=== PATIENT | male | born 1975 | race Caucasian/White ===

== ENCOUNTER 2016-12-22 10:27 | Day surgery (SDC) | payer OTHER ==
[~2016-12-22] VITALS: Ht 180.3 cm; Wt 113.4 kg
[~2016-12-22 10:27] MED LIST: FISH1000 PO; GARL10CA2 PO; NEXI40CA PO; SERT-138 PO; VITA100067 PO; VITA100072 PO; vitamin B PO
[2016-12-22] MEDS ORDERED: LR 1,000 ML IV ONE (10:45)
[2016-12-22] MEDS ORDERED: dexameTHASONE 4 MG/ML 1ML VIAL (J1100) As Ordered ONE (11:06)
[2016-12-22] MEDS ORDERED: ROCURONIUM BROMIDE 50 MG/5 ML VIAL/SYRINGE As Ordered ONE (11:06)
[2016-12-22] MEDS ORDERED: LIDOCAINE 2% INJ 100 MG/5 ML SDV (FOR ANES.) As Ordered ONE (11:06)
[2016-12-22] MEDS ORDERED: ONDANSETRON 4MG/2ML VIAL (J2405) As Ordered ONE (11:06)
[2016-12-22] MEDS ORDERED: PROPOFOL 200 MG/20 ML VIAL As Ordered ONE ×2 (11:06→13:26)
[2016-12-22] MEDS ORDERED: MIDAZOLAM INJ 2 MG/2 ML VIAL (J2250) As Ordered ONE (11:07)
[2016-12-22] MEDS ORDERED: fentaNYL 250 MCG/5 ML INJECTION (J3010) As Ordered ONE (11:07)
[2016-12-22] MEDS ORDERED: METHYLENE BLUE 0.5% (5MG/ML) 10 ML AMP (PROVAYBLUE)(Q9968 PER 1MG) As Ordered ONE (12:18)
[2016-12-22] MEDS ORDERED: LIDOCAINE W/EPINEPHRINE 1% 20ML VIAL As Ordered ONE (12:18)
[2016-12-22] MEDS ORDERED: OXYMETAZOLINE NASAL SPRAY (AFRIN) As Ordered ONE (12:19)
[2016-12-22] MEDS ORDERED: EPINEPHrine INJ 1 MG/ML 1ML AMP As Ordered ONE (12:41)
[2016-12-22] MEDS ORDERED: fentaNYL 100 MCG/2 ML INJECTION (J3010) As Ordered ONE (13:53)
[2016-12-22] MEDS ORDERED: PERCOCET 5MG/325MG TAB As Ordered ONE (13:53)
[2016-12-22] MEDS: PERCOCET 5MG/325MG TAB PO PRN ×2 (13:58→14:28)
[2016-12-22] MEDS: fentaNYL 100 MCG/2 ML INJECTION (J3010) IV PRN ×4 (13:58→14:27)
[2016-12-22] MEDS ORDERED: ONDANSETRON 4MG/2ML VIAL (J2405) IV PRN (14:00)
[2016-12-22] MEDS ORDERED: HYDROmorphone HCL 1 MG/ML SYRINGE (J1170) IV PRN (14:00)
[2016-12-22] MEDS ORDERED: LR 1,000 ML IV SCH (14:00)
[2016-12-22] MEDS ORDERED: ONDANSETRON 4 MG TAB (S0181) PO PRN (14:15)
[2016-12-22] MEDS ORDERED: IBUPROFEN 800 MG TAB PO PRN (14:15)
[2016-12-22] MEDS ORDERED: PERCOCET 5MG/325MG TAB PO PRN (14:15)
[2016-12-22] MEDS ORDERED: IBUPROFEN 400 MG TAB As Ordered ONE (14:37)
[2016-12-22 16:41] VITALS: BP 151/95
--- NOTE | 2016-12-22 19:16 | RO ---
DATE OF PROCEDURE: 12/22/2016 PREPROCEDURE DIAGNOSIS: Deviated septum, hypertrophic turbinates. POSTPROCEDURE DIAGNOSIS: Deviated septum, hypertrophic turbinates. PROCEDURE: Septoplasty, partial reduction of inferior turbinates. SURGEON: Dr. Tanmay Chu POOL HAND: ANESTHESIA: General endotracheal. INDICATIONS: A 41-year-old with a history of nasal obstruction. DESCRIPTION OF PROCEDURE: Satisfactory general endotracheal anesthesia administered, pharyngeal pack placed, nose prepared for surgery by placing cotton-soaked pledgets with Afrin solution into the nasal cavity bilaterally. 1% Xylocaine with 1:100,000 epinephrine were injected in the nasal septum and inferior turbinates. A Rodrgíuez incision was made on the left side of the nose. A mucoperichondrial flap and envelope was created on the left side of the nasal septum and carried down to the junction of the bony and cartilaginous septum. This was then with an elevator, and an envelope was then created on the right side of the septum. A Evaristo scissors was used to make a cut high in the perpendicular plate in the midportion of the vomer, and a central segment of the bony septum was resected. Next, with the round knife on the [place] elevator, a strip of cartilage was resected from the floor of the nose, mobilizing the quadrilateral cartilage and creating a swinging door. Then, a central segment of cartilaginous septum was resected, preserving a 1 cm dorsal and caudal strut. Double-action rongeur was used to take down deflected portions of the perpendicular plate, as well. Finally, the maxillary crest spur was taken down after elevating mucoperiosteum off both sides of it with a chisel. A segment of the resected cartilage was morselized and placed back into the septal envelope. The incision was closed using an interrupted #5-0 chromic suture. Then, a #4-0 plain suture was placed in a adpz-ynz-zerbu fashion through the two leaves of mucoperichondrium to appose them. Next, the inferior turbinates were medially infractured. A #15 blade was used to make an incision on the anterior tip of the inferior turbinate. With a [place] elevator, a mucoperiosteal tunnel was created on the medial side of the turbinate. Then, the microdebrider with a 2.9 mm blade was inserted into the tunnel, and the underlying turbinate bone was weakened and partially resected using the microdebrider. Then, the turbinate was laterally outfractured. The posteroinferior tip of the turbinate was then cauterized with suction cautery. Finally, Patel splints were placed into the nose and sewn to the columella with a #2-0 Prolene suture. The pharyngeal pack was removed, the throat was suctioned. The patient was then awakened, extubated, and sent to recovery in satisfactory condition. He will be discharged home with Tylox for pain, doxycycline 100 mg twice a day, and he will be seen in the office in 3 days.
== END 2016-12-22 16:55 | disposition home or self-care (01) ==
LOC: M SDC 10:27
PROVIDERS: ATTEND Specialist
DX: J34.2 Deviated nasal septum (principal); J34.3 Hypertrophy of nasal turbinates; R42 Dizziness and giddiness; R06.83 Snoring; K21.9 Gastro-esophageal reflux disease without esophagitis; G47.33 Obstructive sleep apnea (adult) (pediatric); Z79.899 Other long term (current) drug therapy

== ENCOUNTER 2017-06-01 12:54 | Day surgery (SDC) | payer OTHER, SELFPAY ==
[2017-06-01] MEDS ORDERED: NS 1,000 ML IV (14:00)
[2017-06-01] MEDS ORDERED: fentaNYL 100 MCG/2 ML INJECTION (J3010) As Ordered (15:17)
[2017-06-01] MEDS ORDERED: LIDOCAINE 2% INJ 100 MG/5 ML SDV (FOR ANES.) As Ordered (15:17)
[2017-06-01] MEDS ORDERED: PROPOFOL 200 MG/20 ML VIAL As Ordered (15:17)
== END 2017-06-01 16:35 | disposition home or self-care (01) ==
LOC: M OPP 12:54
DX: K21.9 Gastro-esophageal reflux disease without esophagitis (principal); K22.8 Other specified diseases of esophagus; I10 Essential (primary) hypertension; E78.5 Hyperlipidemia, unspecified; R12 Heartburn; F41.9 Anxiety disorder, unspecified; F32.9 Major depressive disorder, single episode, unspecified; Z79.899 Other long term (current) drug therapy
CPT/HCPCS: 91035

== ENCOUNTER → 2018-12-21 | Outpatient (REF) | payer OTHER ==
[~2018-12-21] MED LIST changes: +BUSP5TA; +VITA100018 PO; -VITA100072 PO
[2018-12-21 18:40] LABS: RHEUMATOID FACTOR QUANT < 10.0 IU/ML (<15.0); TOTAL PROTEIN 7.8 GM/DL (6.4-8.2)
[2018-12-21 18:50] LABS: FOLATE 12.5 NG/ML; VITAMIN B12 LEVEL 883 PG/ML
[2018-12-21 19:21] LABS: HEMOGLOBIN A1c 5.6 %
[2018-12-23 10:57] LABS: ALBUMIN 4.79 GM/DL (3.29-5.55); ALBUMIN % 61.4 % (55.8-66.1); ALPHA-1-GLOBULIN % 3.5 % (2.9-4.9); ALPHA-1-GLOBULINS 0.27 GM/DL (0.17-0.41); ALPHA-2-GLOBULINS 0.76 GM/DL (0.42-0.99); ALPHA-2-GLOBULINS % 9.7 % (7.1-11.8); BETA-1-GLOBULINS 0.48 GM/DL (0.28-0.60); BETA-1-GLOBULINS % 6.1 % (4.7-7.2); BETA-2-GLOBULINS 0.38 GM/DL (0.19-0.55); BETA-2-GLOBULINS % 4.9 % (3.2-6.5); GAMMA GLOBULIN % 14.4 % (11.1-18.8); GAMMA GLOBULINS 1.12 GM/DL (0.65-1.58)
[2018-12-28 00:06] LABS: ANCA-ATYPICAL <1:20 titer (Neg:<1:20); ANTI THROMBIN 3 ANTIGEN IMMUNO 90 % (72-124); ANTI THROMBIN 3 FUNCT ACTIVITY 114 % (75-135); ANTINUCLEAR ANTIBODIES DIRECT Negative (Negative); CARDIOLIPIN IGA ANTIBODY <9 APL U/mL (0-11); CARDIOLIPIN IGG ANTIBODY <9 GPL U/mL (0-14); CARDIOLIPIN IGM ANTIBODY <9 MPL U/mL (0-12); CYTOPLASMIC NEUTROP AB ANCA-C <1:20 titer (Neg:<1:20); PERINUCLEAR AB ANCA-P <1:20 titer (Neg:<1:20); PROTEIN C FUNCTIONAL ACTIVITY 125 % (73-180); PROTEIN S FUNCTIONAL ACTIVITY 107 % (63-140); VITAMIN E(ALPHA TOCOPHEROL) 9.6 mg/L (7.0-25.1)
[2018-12-28 11:25] LABS: DRVV SCREEN 41.1 SEC
== END ==
LOC: M LABNEURO 17:34
PROVIDERS: ATTEND Psychiatry & Neurology Neurology
DX: G45.9 Transient cerebral ischemic attack, unspecified (principal); E11.9 Type 2 diabetes mellitus without complications; G90.09 Other idiopathic peripheral autonomic neuropathy

== ENCOUNTER → 2019-05-27 | Outpatient (CLI) | payer OTHER ==
--- NOTE | 2019-05-27 17:14 | REP ---
PA and lateral chest: Comparison is a chest CT dated 11/03/2011. There is a left lung nodule. This is a calcified granuloma on the comparison CT. The lung bruce otherwise clear. Cardiac size is normal. The alpa, mediastinum, skeletal structures are unremarkable. Impression: Essentially negative PA and lateral chest. There is a calcified granuloma in the left lung as described. Electronically Signed by Reymundo Ramirez MD 05/27/2019 05:05 P
== END ==
LOC: M RAD 16:11
PROVIDERS: ATTEND Internal Medicine Cardiovascular Disease
DX: R06.02 Shortness of breath (principal)

== ENCOUNTER → 2019-06-04 | Outpatient (CLI) | payer OTHER ==
[2019-06-04 10:03] LABS: HEMATOCRIT 47.3 % (42.0-52.0); HEMOGLOBIN 15.5 g/dl (13.5-17.5); MEAN CORPUSCULAR HEMOGLOBIN 29.7 pg (27.0-33.0); MEAN CORPUSCULAR HGB CONC 32.8 g/dl (32.0-36.5); MEAN CORPUSCULAR VOLUME 90.6 fl (80.0-96.0); PLATELET COUNT, AUTOMATED 165 10^3/uL (150-450); RED BLOOD COUNT 5.22 10^6/uL (4.30-6.10); WHITE BLOOD COUNT 5.5 10^3/uL (4.0-10.0)
[2019-06-04 10:37] LABS: ALBUMIN 3.6 GM/DL (3.2-5.2); BLOOD UREA NITROGEN 15 MG/DL (7-18); CALCIUM LEVEL 8.2 MG/DL (8.5-10.1); CARBON DIOXIDE LEVEL 31 MEQ/L (21-32); CHLORIDE LEVEL 111 MEQ/L (98-107); CHOLESTEROL LEVEL 165 MG/DL (<200); CHOLESTEROL RISK RATIO 4.024 (<5); CREATININE FOR GFR 0.93 MG/DL (0.70-1.30); GLOMERULAR FILTRATION RATE > 60.0 (>60); GLUCOSE, FASTING 104 MG/DL (70-100); HDL CHOLESTEROL 41 MG/DL (>40); LDL CHOLESTEROL 108 MG/DL (<100); NON-HDL-C 124 MG/DL; NT-PRO BNP 8 PG/ML (<125); POTASSIUM SERUM 4.7 MEQ/L (3.5-5.1); SODIUM LEVEL 144 MEQ/L (136-145); TRIGLYCERIDES LEVEL 81 MG/DL (<150)
== END ==
LOC: M LAB 09:16
PROVIDERS: ATTEND Internal Medicine Cardiovascular Disease
DX: R06.02 Shortness of breath (principal)

== ENCOUNTER → 2020-05-14 | Outpatient (CLI) | payer SELFPAY | LOC: M LABSMTC 10:32 | PROVIDERS: ATTEND Pediatrics | DX: Z11.52 Encounter for screening for COVID-19 (principal) ==

== ENCOUNTER → 2020-12-13 | Outpatient (CLI) | payer OTHER ==
--- NOTE | 2020-12-14 06:49 | REP ---
INDICATION: VARICOSE VEINS COMPARISON: None. TECHNIQUE: Suggs scale and color Doppler evaluation using linear high frequency transducer including reflux evaluation. FINDINGS: Ultrasound examination of the right and left lower extremity deep venous structures from the common femoral vein through the calf/ankle to include the peroneal, and tibial veins demonstrates normal compressibility flow and wave patterns in response to respiration and augmentation. There is no evidence for deep venous thrombosis. Incidental note is made of bilateral duplicated mid superficial femoral veins. Right lower extremity demonstrates absence of the greater saphenous vein consistent with history of prior vascular surgery. A large collateral vessel is identified extending from the anterior accessory saphenous vein to the distal greater saphenous vein at the calf and demonstrates significant reflux. Reflux is also noted through the right deep venous system. Left lower extremity demonstrates reflux through the mid and distal greater saphenous vein with reflux duration of 6.3 seconds and 4.8 seconds, respectively. A small collateral vessel is identified extending from the proximal greater saphenous vein distally without significant reflux. Deep system demonstrates reflux through the common femoral vein and popliteal vein. IMPRESSION: No evidence for deep venous thrombosis. Moderate elements of reflux noted bilaterally as described above. <Electronically signed by Geraldo Pierre > 12/14/20 [id number]
== END ==
LOC: M RAD 14:47
PROVIDERS: ATTEND Surgery Vascular Surgery
DX: I83.11 Varicose veins of right lower extremity with inflammation (principal)

== ENCOUNTER → 2021-03-14 | Outpatient (CLI) | payer OTHER ==
--- NOTE | 2021-03-14 11:21 | REP ---
INDICATION: GERD. COMPARISON: None. TECHNIQUE: Real-time sonographic evaluation of the left lower quadrant and inguinal region FINDINGS: Note is made of echogenic material seen which enters the at the level of the internal ring during Valsalva. IMPRESSION: Possible adipose containing left inguinal hernia. Follow-up with CT. <Electronically signed by Devendra Do > 03/14/21 [id number]
== END ==
LOC: M RAD 10:37
PROVIDERS: ATTEND Internal Medicine Gastroenterology
DX: K21.9 Gastro-esophageal reflux disease without esophagitis (principal)

== ENCOUNTER → 2021-05-22 | Outpatient (CLI) | payer OTHER ==
[~2021-05-22] MED LIST changes: +D200CAP PO; +OMEP-173 PO; +VITMTA PO
== END ==
LOC: M LABSMTC 11:38
PROVIDERS: ATTEND Anesthesiology
DX: Z01.818 Encounter for other preprocedural examination (principal); Z11.52 Encounter for screening for COVID-19

== ENCOUNTER 2021-05-27 11:07 | Day surgery (SDC) | payer OTHER ==
[~2021-05-27] VITALS: Ht 180.3 cm; Wt 122.0 kg
[~2021-05-27 11:07] MED LIST changes: +LIDOCAINE 2% 100MG/5ML SDV (FOR ANES.) As Ordered ONE; +NS 1,000 ML IV ONE; +fentaNYL 100 MCG/2 ML INJECTION As Ordered ONE; +propofoL 200 MG/20 ML VIAL As Ordered ONE
[2021-05-27 14:43] VITALS: BP 122/77
== END 2021-05-27 14:45 | disposition home or self-care (01) ==
LOC: M OPP 11:07
PROVIDERS: ATTEND Internal Medicine Gastroenterology
DX: Z12.11 Encounter for screening for malignant neoplasm of colon (principal); K64.8 Other hemorrhoids; K44.9 Diaphragmatic hernia without obstruction or gangrene; K21.00 Gastro-esophageal reflux disease with esophagitis, without bleeding; K29.70 Gastritis, unspecified, without bleeding; R12 Heartburn; G47.30 Sleep apnea, unspecified; Z87.891 Personal history of nicotine dependence
CPT/HCPCS: 43239; 45378; 88305; J3010

== ENCOUNTER 2022-12-28 00:15 | Emergency (ER) | payer OTHER, SELFPAY ==
[~2022-12-28] VITALS: Ht 180.3 cm; Wt 122.7 kg
[~2022-12-28 00:15] MED LIST changes: -LIDOCAINE 2% 100MG/5ML SDV (FOR ANES.) As Ordered ONE; -NS 1,000 ML IV ONE; -fentaNYL 100 MCG/2 ML INJECTION As Ordered ONE; -propofoL 200 MG/20 ML VIAL As Ordered ONE
[2022-12-28] MEDS ORDERED: ESOM20CA25 (00:26)
[2022-12-28] MEDS ORDERED: SERTRALINE (00:26)
[2022-12-28 01:01] LABS: BASO % 0.4 % (0.0-1.0); EOS # 0.2 10^3/uL (0.0-0.5); EOS % 1.5 % (0.0-3.0); LYMPH # 1.5 10^3/uL (1.5-5.0); LYMPH % 14.7 % (24.0-44.0); MEAN CORPUSCULAR HEMOGLOBIN 30.1 pg (27.0-33.0); MEAN CORPUSCULAR HGB CONC 34.1 g/dl (32.0-36.5); MEAN CORPUSCULAR VOLUME 88.4 fl (80.0-96.0); MONO # 0.6 10^3/uL (0.0-0.8); MONO % 5.8 % (2.0-8.0); NEUTROPHILS # 7.9 10^3/uL (1.5-8.5); NEUTROPHILS % 77.3 % (36.0-66.0); PLATELET COUNT, AUTOMATED 186 10^3/uL (150-450); RED BLOOD COUNT 4.98 10^6/uL (4.30-6.10); WHITE BLOOD COUNT 10.2 10^3/uL (4.0-10.0)
[2022-12-28 01:37] LABS: BLOOD UREA NITROGEN 22 MG/DL (9-23); CALCIUM LEVEL 9.1 MG/DL (8.5-10.1); CARBON DIOXIDE LEVEL 26 MMOL/L (20-31); CHLORIDE LEVEL 105 MMOL/L (98-107); CK-MB VALUE MASS < 1.0 NG/ML (<3.6); CREATININE FOR GFR 0.76 MG/DL (0.70-1.30); GLOMERULAR FILTRATION RATE > 60.0 (>60); GLUCOSE, FASTING 119 MG/DL (60-100); POTASSIUM SERUM 3.4 MMOL/L (3.5-5.1); SODIUM LEVEL 140 MMOL/L (136-145)
[2022-12-28 01:44] LABS: CPK CREATINE PHOSPHOKINASE 180 U/L (46-171); MB/CK RELATIVE INDEX 0.55 (< OR =4)
[2022-12-28 02:45] LABS: CK-MB VALUE MASS < 1.0 NG/ML (<3.6)
[2022-12-28 02:49] LABS: CPK CREATINE PHOSPHOKINASE 209 U/L (46-171); MB/CK RELATIVE INDEX 0.47 (< OR =4)
[2022-12-28] MEDS ORDERED: NS 1,000 ML IV ONE (02:55)
[2022-12-28] MEDS ORDERED: LORazepam 2 MG/ML 1ML VIAL IV STA (02:55)
[2022-12-28] MEDS ORDERED: ATIV1TAB10 PO (04:21)
[2022-12-28 04:33] VITALS: BP 162/82; TEMP 98.6
[2022-12-28 04:48] VITALS: O2SAT 96
== END 2022-12-28 05:00 | disposition home or self-care (01) ==
LOC: M ED 00:15
DX: F41.0 Panic disorder [episodic paroxysmal anxiety] (principal); G47.33 Obstructive sleep apnea (adult) (pediatric); F32.A Depression, unspecified; K21.9 Gastro-esophageal reflux disease without esophagitis; Z87.891 Personal history of nicotine dependence; F19.10 Other psychoactive substance abuse, uncomplicated
CPT/HCPCS: 71045; 80048; 82550; 82553; 84484; 85025; 93005; 93041; 94760; 96361; 96374; 99285; J2060

== ENCOUNTER → 2024-02-26 | Outpatient (CLI) | payer SELFPAY ==
[~2024-02-26] MED LIST changes: +ATIV1TAB10 PO; +ESOM20CA25; +SERTRALINE
== END ==
LOC: M WUC 15:51
PROVIDERS: ATTEND Physician Assistant
DX: S33.5XXA Sprain of ligaments of lumbar spine, initial encounter (principal); S30.0XXA Contusion of lower back and pelvis, initial encounter; W01.10XA Fall on same level from slipping, tripping and stumbling with subsequent striking against unspecified object, initial encounter; Y93.9 Activity, unspecified; Y92.9 Unspecified place or not applicable